=== PATIENT | female | born 1975 | race African-American/Black ===

== ENCOUNTER → 2020-02-24 | Emergency (ER) | payer BC ==
[~2020-02-24] VITALS: Ht 152.4 cm; Wt 59.0 kg
[~2020-02-24] MED LIST: DOXYCYCLINE MO100 MG ORAL; Lidocaine 1% 10mg/ml/Epi 0.005mg/ml 10ml INJ ONE
[2020-02-24 00:58] VITALS: BP 133/65
[2020-02-24 01:14] VITALS: BP 133/65
--- NOTE | 2020-02-24 01:19 | Emergency Room Report ---
History of Present Illness General Chief Complaint: Skin Rash/Abscess Present Illness HPI 44-year-old female here with abscess on right buttock. Patient says that she had a spider bite 4 days ago and has been keeping the area clean with swabs. She says despite this the painful region on her right buttock has enlarged and now there is redness spreading from the abscess. Denies IV drug use. Denies frequent abscesses. No fevers, chills, chest pain, palpitation, shortness of breath, nausea, vomiting, diarrhea, dysuria, painful defecation. Allergies: Coded Allergies: No Known Allergies (Unverified , 02/24/20) COVID-19 Screening Contact w/high risk pt: No Experienced COVID-19 symptoms?: No COVID-19 Testing performed [employer]: No Nursing Documentation-[facility] Past Medical History: No History, Except For Hx Asthma: Yes Review of Systems All Other Systems: negative except mentioned in HPI Physical Exam Vital Signs Date Time Temp Pulse Resp B/P (MAP) Pulse Ox O2 Delivery O2 Flow Rate FiO2 02/24/20 00:53 98.2 84 16 133/65 (87) 96 Room Air Sp02 EP Interpretation: reviewed, normal General Appearance: no apparent distress, alert, non-toxic Head: normocephalic, atraumatic Eyes: bilateral eye normal inspection, bilateral eye PERRL ENT: hearing grossly normal, normal pharynx, no angioedema, normal voice Neck: full range of motion, supple/symm/no masses Respiratory: chest non-tender, lungs clear, normal breath sounds, speaking full sentences Cardiovascular #1: regular rate, rhythm, no edema Cardiovascular #2: 2+ carotid (R), 2+ carotid (L), 2+ radial (R), 2+ radial (L), 2+ dorsalis pedis (R), 2+ dorsalis pedis (L) Gastrointestinal: normal bowel sounds, non tender, soft, non-distended, no guarding, no rebound Rectal: deferred Genitourinary: normal inspection, no CVA tenderness Musculoskeletal: back normal, normal range of motion, gait/station normal, non- tender Neurologic: alert, motor strength/tone normal, oriented x3, sensory intact, responsive, speech normal Psychiatric: judgement/insight normal, memory normal, mood/affect normal, no suicidal/homicidal ideation Skin: other - Right buttock 2 cm abscess with approximately 4 cm erythema and induration spreading peripherally from the abscess Lymphatic: no adenopathy Procedures Incision and Drainage Incision and Drainage : Consent: Emergent Blade Size: 11 I & D Procedure: betadine prep Wound Location: other - Right buttock Wound's Depth, Shape: superficial Anesthesia: Lidocaine w/ Epi Progress 1 cm incision made into head of abscess. Moderate amount of purulent fluid drained Medical Decision Making Diagnostic Impression: Primary Impression: Abscess Additional Impressions: Cellulitis Cellulitis and abscess of buttock ER Course 44-year-old female here with abscess on right buttock. Patient denied any dyschezia or hematochezia. This was located in the peripheral right buttock. No concern at this time for perirectal or perianal abscess or fistula formation. Patient normal vital signs and was otherwise hemodynamically stable in the emergency department. Incision and drainage was performed as described above. Patient tolerated procedure well. She was given a prescription for doxycycline. Told to return to the emergency department with any worsening symptoms. She expressed understanding and was discharged. Last Vital Signs Date Time Temp Pulse Resp B/P (MAP) Pulse Ox O2 Delivery O2 Flow Rate FiO2 02/24/20 01:14 98.2 78 16 133/65 96 Room Air Disposition: HOME, SELF-CARE Condition: Stable Scripts Doxycycline Monohydrate* (DOXYCYCLINE MONOHYDRATE*) 100 Mg Capsule 100 MG ORAL Q12H, #14 CAP 0 Refills Prov: Hood Carr M.D. 02/24/20 Referrals: [facility],REFERRING (PCP) [facility] Patient Instructions: Hood Calvert M.D. Feb 24, 2020 01:19
== END | disposition home or self-care (01) ==
LOC: EMR 01:14
DX: L02.31 Cutaneous abscess of buttock (principal); L03.317 Cellulitis of buttock; J45.909 Unspecified asthma, uncomplicated
CPT/HCPCS: 10060; 99282